=== PATIENT | male | born 1950 | race Caucasian/White ===

== ENCOUNTER 2018-01-10 07:18 | Outpatient (CLI) | payer MEDICARE, BC ==
[~2018-01-10] VITALS: Ht 177.8 cm; Wt 112.0 kg
[2018-01-10 07:50] LABS: TOTAL HEMOGLOBIN 13.5 G/dl (14.0-18.0)
[2018-01-10] MEDS ORDERED: albuterol 2.5 MG/3 ML nebule NEB PRN (08:15)
== END 2018-01-10 23:59 | disposition home or self-care (01) ==
LOC: RT 07:18
PROVIDERS: ATTEND Internal Medicine Pulmonary Disease
DX: R05 Cough (principal)
CPT/HCPCS: 85018; 94010; 94727; 94729; J7030; A4620

== ENCOUNTER 2018-06-06 05:24 | Inpatient (IN) | payer MEDICARE, BC ==
[2018-06-01 13:45] LABS: EOSINOPHILS # (AUTO) 0.1 X10'3 (0-0.9); EOSINOPHILS % (AUTO) 2.2 % (0-6); LYMPHOCYTES # (AUTO) 1.2 X10'3 (1.1-4.8); LYMPHOCYTES % (AUTO) 23.8 % (21-51); MEAN CORPUSCULAR HEMOGLOBIN 27.5 PG (27.0-31.0); MEAN CORPUSCULAR HGB CONC 33.3 % (33.0-36.5); MEAN CORPUSCULAR VOLUME 82.6 FL (78-98); MONOCYTES # (AUTO) 0.4 X10'3 (0-0.9); MONOCYTES % (AUTO) 8.7 % (2-12); NEUTROPHILS # (AUTO) 3.2 X10'3 (1.8-7.7); NEUTROPHILS % (AUTO) 64.3 % (42-75); PRE OP HEMATOCRIT 44.1 % (42.0-52.0); PRE OP HEMOGLOBIN 14.7 g/dL (14.0-17.9); PRE OP PLATELET COUNT 249 X10'3 (140-440); RED BLOOD COUNT 5.34 X10'6 (4.70-6.10); RED CELL DISTRIBUTION WIDTH 15.9 % (11.5-14.5)
[2018-06-01 13:54] LABS: CLARITY,URINE CLEAR (Clear); COLOR,URINE YELLOW (Yellow); GLUCOSE, URINE NEGATIVE (Neg); KETONES,URINE NEGATIVE (Neg); LEUKOCYTE ESTERASE ,URINE NEGATIVE (Neg); NITRITES, URINE NEGATIVE (Neg); OCCULT BLOOD,URINE NEGATIVE (Neg); PH,URINE 5.5 (4.8-8.0); PROTEIN,URINE NEGATIVE (Neg); UROBILINOGEN,URINE 0.2 E.U/dL (0.2-1.0)
[2018-06-01 14:00] LABS: UA COLLECTION TYPE CLN CATCH MIDSTREAM
[2018-06-01 14:06] LABS: ALBUMIN 3.6 G/DL (3.4-5.0); ALBUMIN/GLOBULIN RATIO 0.9 (1.1-1.5); ALKALINE PHOSPHATASE 146 IU/L (46-116); BLOOD UREA NITROGEN 18 MG/DL (7-18); BUN/CREATININE RATIO 15.5 (5.4-32.0); CALCIUM 8.8 MG/DL (8.5-10.1); CHLORIDE 101 MMOL/L (99-107); CREATININE 1.16 MG/DL (0.60-1.10); PRE OP ALT 27 U/L (30-65); PRE OP ANION GAP 13 (8-16); PRE OP AST 19 U/L (10-37); PRE OP BILIRUB, TOTAL 0.5 MG/DL (0.0-1.0); PRE OP GLUCOSE 174 MG/DL (70-104); PRE OP SODIUM 138 MMOL/L (135-145); TOTAL PROTEIN 7.4 G/DL (6.4-8.2); eGFR 63 ML/MIN
[2018-06-01 14:11] LABS: PRE OP POTASSIUM 3.2 MMOL/L (3.4-5.1)
[2018-06-01 14:18] LABS: PRE OP INR 1.1 INR; PRE OP PROTIME 10.8 SECONDS (9.0-12.0)
[2018-06-01 14:24] LABS: HEMOGLOBIN A1C 6.5 % (4.5-6.2)
[~2018-06-06] VITALS: Ht 177.8 cm; Wt 104.1 kg
[2018-06-06] VITALS (25 sets, daily range): BP systolic 90–230; BP diastolic 48–100
[~2018-06-06 05:24] MED LIST: CARV6.253 PO; CHOL400T14 PO; GEMF600T89 PO; GLIM4TAB79 PO; HYDR25TA4 PO; LOSA100T57 PO; METF1000 PO; MULT1TAB74 PO; NIA500ERT PO; OMEP20CA10 PO; PIOG15TA8 PO; RANI150T8 PO; ringers solution, lacted 1,000 ML IV SCH
[2018-06-06] MEDS ORDERED: cefazolin/dext.iso 2gm/100 ML IV ONE (05:30)
[2018-06-06] MEDS ORDERED: famotidine 20mg tablet PO ONE (05:30)
[2018-06-06] MEDS ORDERED: DOCUMENT DATE & TIME OF BETA-BLOCKER PO ONE (05:30)
[2018-06-06 06:26] LABS: ISTAT HGB 14.3 g/dl (14.0-18.0); ISTAT IONIZED CALCIUM 1.17 mmol/L (1.03-1.32); ISTAT K 3.4 mmol/L (3.5-5.1)
[2018-06-06] MEDS ORDERED: ROPIVAcaine 0.5% (5mg/ml) 30ml vial ONE ×3 (06:30→09:34)
[2018-06-06] MEDS ORDERED: insulin regular, human 10 units/0.1 ml syringe SQ ONE (07:05)
[2018-06-06] MEDS ORDERED: MIDAZolam 5mg/5ml vial ONE (07:24)
[2018-06-06] MEDS ORDERED: fentaNYL /PF 50mcg/ml 5ml ampule ONE (07:24)
[2018-06-06] MEDS ORDERED: rocuronium 10mg/ml inj IV ONE (07:24)
[2018-06-06] MEDS ORDERED: etomidate 2mg/ml inj. ONE (07:24)
--- NOTE | 2018-06-06 08:00 | NUR ---
DR NESBITT CALLED WITH FOLLOW UP BLOOD GLUCOSE (PER HIS REQUEST TO DO AT 0800). NO NEW ORDERS.
[2018-06-06] MEDS ORDERED: furosemide 40mg/4ml inj ONE (08:22)
[2018-06-06] MEDS ORDERED: sevoflurane 250ml liquid IH ONE (08:22)
[2018-06-06] MEDS ORDERED: pancuronium br 1mg/ml inj IV ONE (09:25)
[2018-06-06] MEDS ORDERED: dexamethasone sod phosphate 4mg/ml inj. ONE (09:25)
[2018-06-06] MEDS ORDERED: ondansetron/PF 4mg/2ml inj ONE (09:25)
[2018-06-06] MEDS ORDERED: ringers solution, lacted 1,000 ML IV SCH (09:54)
[2018-06-06] MEDS ORDERED: ondansetron/PF 4mg/2ml inj IV PRN ×2 (09:55→10:20)
[2018-06-06] MEDS ORDERED: meperidine/PF 25mg/ml syringe IV PRN ×3 (09:55)
[2018-06-06] MEDS ORDERED: morphine 4 MG/ML inj SYRINge IV PRN ×4 (09:55→10:20)
[2018-06-06] MEDS ORDERED: proCHLORperazine 10 MG/2 ml inj IV PRN (09:55)
[2018-06-06] MEDS ORDERED: ePHEDrine 50MG/ML INJ. ONE (10:07)
[2018-06-06] MEDS ORDERED: glycopyrrolate 0.2mg/ml inj ONE (10:07)
[2018-06-06] MEDS ORDERED: neostigmine methylsulfate 1 MG/ML 10ml vial ONE (10:07)
[2018-06-06] MEDS ORDERED: famotidine 20mg tablet PO PRN (10:10)
[2018-06-06] MEDS ORDERED: magnesium hydroxide 30ml (MOM) UD suspension PO PRN (10:20)
[2018-06-06] MEDS ORDERED: sugammadex 200mg/2ml injection IV ONE (10:20)
[2018-06-06] MEDS ORDERED: HYDROcodone/acetaminophen 10/325mg tab PO PRN ×2 (10:20)
[2018-06-06] MEDS ORDERED: albuterol 2.5 MG/3 ML nebule NEB PRN ×2 (10:20)
[2018-06-06] MEDS ORDERED: metoclopramide 5 mg/ml inj IV PRN (10:20)
--- NOTE | 2018-06-06 10:20 | NUR ---
Received critical WBC 32.0. Critical lab given to Gwendolyn PRICE Addendum: 06/06/18 at 1433 by Evon Cha RN Documented on wrong patient. Please disregard this note. Thank you
[2018-06-06] MEDS ORDERED: potassium Cl 20 mEq SR tablet PO PRN (10:30)
[2018-06-06] MEDS ORDERED: magnesium Cl slow-release 64mg tablet PO PRN (10:30)
[2018-06-06] MEDS ORDERED: potassium Cl 40MEQ/NS 500ml 500 ML IV PRN ×2 (10:30)
[2018-06-06] MEDS ORDERED: magnesium 4gm in 100ml NS 100 ML IV PRN (10:30)
--- NOTE | 2018-06-06 10:45 | NUR ---
ARRIVED IN PACU VIA BED FROM OR WITH DR NESBITT IN ATTENDANCE. O2 ON. DR NESBITT IN ATTENDANCE. REPORT RECEIVED. PT. VERY RESTLESS AND COUGHING AND APPEARS TO BE AIR STARVED. SAO2 85%. bp 22osyst. BREATHING RX AND XRAY ORDERED.
--- NOTE | 2018-06-06 10:50 | NUR ---
BREATHING IS SHALLOW AND BREATH SOUNDS VERY DIMINISHED. COUGH WEAK. PT STRONG GRIPPING SIDE RAILS AND SITTING UP
--- NOTE | 2018-06-06 11:00 | NUR ---
LASIX 20MG GIVENN BY DR NESBITT ( 1ST DOSE WAS GIVEN IN OR).
[2018-06-06 11:06] LABS: ABG BASE EXCESS -6.1 mmol/L (-2.0-3.0); ABG HCO3 23.5 mmol/L (22.0-26.0); ABG OXYGEN SATURATION 87.5 % (95-98); ABG PCO2 (T) 63.6 mmHg (35.0-48.0); ABG PH (T) 7.186 (7.350-7.450); ABG PO2 (T) 65.2 mmHg (83-108); FCOHb 0.8 % (0.5-1.5); FLOW 8 L/min; FMetHb 0.1 % (0.3-1.12); FO2Hb 86.7 % (94-100); RESPIRATORY RATE (OBSERVED) 40 b/min; TOTAL HEMOGLOBIN 16.4 G/dl (14.0-18.0)
--- NOTE | 2018-06-06 11:10 | NUR ---
BIPAP APPLIED AFTER ABG RESULTS REVIEWED BY DR NESBITT. REG INSULIN 8U IV GIVEN. CT WITH 70ML IN HEMOVAC
--- NOTE | 2018-06-06 11:10 | NUR ---
SAO2 88%. BP 186/85-95-28
[2018-06-06] MEDS ORDERED: insulin regular, human 10 units/0.1 ml syringe ONE ×2 (11:16→11:18)
--- NOTE | 2018-06-06 12:00 | NUR ---
PT LESS RESTLESS. VS STABILIZING. LG AMT URINE IN SWARTZ
--- NOTE | 2018-06-06 12:37 | NUR ---
PT COMFORTABLE. RESP EASY. COLOR PINK. NO C/O PAIN. BIPAP D/C'D AND 10L MASK ADDED
[2018-06-06 12:40] LABS: BASOPHILS % (AUTO) 0.2 % (0-1); EOSINOPHILS % (AUTO) 0 % (0-6); HEMATOCRIT 47.4 % (42.0-52.0); HEMOGLOBIN 15.9 g/dl (14.0-17.9); LYMPHOCYTES # (AUTO) 0.7 X10'3 (1.1-4.8); LYMPHOCYTES % (AUTO) 4.5 % (21-51); MEAN CORPUSCULAR HEMOGLOBIN 27.3 PG (27.0-31.0); MEAN CORPUSCULAR HGB CONC 33.5 % (33.0-36.5); MEAN CORPUSCULAR VOLUME 81.4 FL (78-98); MEAN PLATELET VOLUME 10.2 FL (7.4-10.4); MONOCYTES # (AUTO) 0.3 X10'3 (0-0.9); NEUTROPHILS # (AUTO) 14.3 X10'3 (1.8-7.7); NEUTROPHILS % (AUTO) 93.3 % (42-75); PLATELET COUNT 286 X10'3 (140-440); RED BLOOD COUNT 5.82 X10'6 (4.70-6.10); RED CELL DISTRIBUTION WIDTH 15.8 % (11.5-14.5); WHITE BLOOD COUNT 15.3 X10'3 (4.5-11.0)
--- NOTE | 2018-06-06 12:45 | NUR ---
SAO2 93%. INCREASED COUGH OF BYPASS. HOB ELEVATED 80%
[2018-06-06 12:47] LABS: ALBUMIN 3.5 G/DL (3.4-5.0); ANION GAP 14 (8-16); BLOOD UREA NITROGEN 14 MG/DL (7-18); BUN/CREATININE RATIO 12.5 (5.4-32.0); CALCIUM 8.1 MG/DL (8.5-10.1); CHLORIDE 101 MMOL/L (99-107); CREATININE 1.12 MG/DL (0.60-1.10); GLUCOSE 167 MG/DL (70-104); MAGNESIUM 1.5 MG/DL (1.5-2.4); POTASSIUM 3.3 MMOL/L (3.5-5.1); SODIUM 137 MMOL/L (135-145); TOTAL CARBON DIOXIDE 21.7 MMOL/L (24-32); eGFR 66 ML/MIN
--- NOTE | 2018-06-06 13:05 | NUR ---
REPORT TO DR NESBITT. NO REPEAT ABG NEEDED. PCU OK WITH TELE. REPEAT BREATING RX GIVEN. GLUCOSE OK AT 167.
[2018-06-06] MEDS ORDERED: albuterol 2.5 MG/3 ML nebule NEB ONE (13:10)
--- NOTE | 2018-06-06 13:20 | NUR ---
100ML URINE EMPTIED. CT 85ML
--- NOTE | 2018-06-06 14:10 | NUR ---
PHONE REPORT TO DR ORDAZ
--- NOTE | 2018-06-06 14:10 | NUR ---
DR NESBITT HERE TO EXAM PT. HE GAVE PT A REPORT ON THE SURG
--- NOTE | 2018-06-06 14:45 | NUR ---
PT DOESN'T WANT TO WEAR MASK. SAO2 90-93% ON NC. BP 110SYST BY COUGH. TO ACCE UNIT [id number]. PT AWAKE, COMFORTABLE, RESP EASY, COLOR PINK. PAT IN ROOM TO ACCEOT PT. SAO2 90-91 ON ARRIVAL. INSTRUCTED NURSE TO START PT ON IS KAREN
--- NOTE | 2018-06-06 15:12 | NUR ---
RECEIVED PATIENT AND REPORT FROM RECOVERY. PATIENT AWAKE AND ALERT. O2 SAT 92% ON 6L/NC. DENIES PAIN, SOB ,AND OR NAUSEA. HOB UP, CALL LIGHT IN REACH.CHEST TUBE TO SUCTION, AT RT LATERAL CHEST, CDI. NO AIR LEAK NOTED; SUCTION AT 20 CM. Addendum: 06/06/18 at 1525 by Yeimi Parham RN Amended: Links added.
[2018-06-06] MEDS: ketorolac tromethamine 15mg/ml inj. IV SCH ×2 (16:00→20:47)
--- NOTE | 2018-06-06 16:00 | NUR ---
MEDICATED WITH TORADOL FOR C/O CHEST TUBE PAIN.O2 SAT IMPROVED , NOW 97% ON 6L/NC. HOB UP CALL LIGHT IN REACH. Addendum: 06/06/18 at 1857 by Yeimi Parham RN Amended: Links added.
[2018-06-06] MEDS: ceFAZolin inj. 1,000 MG in dextrose 5%-water 50ml 50 ML IV SCH (17:00)
--- NOTE | 2018-06-06 18:15 | NUR ---
Patient in room MED 315. I have received report from Pat and had the opportunity to ask questions and assume patient care.
[2018-06-06] MEDS: docusate sod 100mg capsule PO SCH (20:00)
[2018-06-06] MEDS: gemfibrozil 600mg tablet PO SCH (20:00)
[2018-06-06] MEDS ORDERED: non-formulary drug (Omeprazole 1 CAP) PO SCH (20:00)
[2018-06-06] MEDS ORDERED: metFORMIN 500mg tablet PO SCH (20:00)
[2018-06-06] MEDS: carvedilol 6.25mg tablet PO SCH (20:48)
[2018-06-07] MEDS: ceFAZolin inj. 1,000 MG in dextrose 5%-water 50ml 50 ML IV SCH (00:09)
[2018-06-07] MEDS: ketorolac tromethamine 15mg/ml inj. IV SCH ×2 (02:03→08:17)
[2018-06-07 03:00] VITALS: BP 91/53
[2018-06-07 05:11] LABS: BASOPHILS % (AUTO) 0.1 % (0-1); EOSINOPHILS # (AUTO) 0.1 X10'3 (0-0.9); EOSINOPHILS % (AUTO) 1.4 % (0-6); HEMATOCRIT 39.3 % (42.0-52.0); LYMPHOCYTES # (AUTO) 0.6 X10'3 (1.1-4.8); LYMPHOCYTES % (AUTO) 6.3 % (21-51); MEAN CORPUSCULAR HEMOGLOBIN 27.3 PG (27.0-31.0); MEAN CORPUSCULAR HGB CONC 33.1 % (33.0-36.5); MEAN CORPUSCULAR VOLUME 82.4 FL (78-98); MEAN PLATELET VOLUME 10.1 FL (7.4-10.4); MONOCYTES # (AUTO) 0.6 X10'3 (0-0.9); MONOCYTES % (AUTO) 6.3 % (2-12); NEUTROPHILS % (AUTO) 85.9 % (42-75); PLATELET COUNT 197 X10'3 (140-440); RED BLOOD COUNT 4.76 X10'6 (4.70-6.10); RED CELL DISTRIBUTION WIDTH 15.7 % (11.5-14.5); WHITE BLOOD COUNT 9.4 X10'3 (4.5-11.0)
[2018-06-07 05:26] LABS: ANION GAP 15 (8-16); BLOOD UREA NITROGEN 20 MG/DL (7-18); BUN/CREATININE RATIO 16.5 (5.4-32.0); CALCIUM 8.6 MG/DL (8.5-10.1); CHLORIDE 101 MMOL/L (99-107); CREATININE 1.21 MG/DL (0.60-1.10); GLUCOSE 163 MG/DL (70-104); MAGNESIUM 1.6 MG/DL (1.5-2.4); POTASSIUM 3.6 MMOL/L (3.5-5.1); SODIUM 138 MMOL/L (135-145); eGFR 60 ML/MIN
[2018-06-07 07:00] VITALS: BP 147/73
--- NOTE | 2018-06-07 07:00 | NUR ---
SMALL AIR LEAK NOTED WITH DR. ORDAZ AND DARCY SANTOYO AT BEDSIDE. NO NEW ORDERS, PATIENT ASYMPTOMATIC. WILL CONTINUE TO MONITOR.
--- NOTE | 2018-06-07 07:00 | NUR ---
DR. ORDAZ AND KAREN TAVERAS AT BEDSIDE. VERY TINY AIR LEAK NOTED FROM CHEST TUBE DURING PATIENT INSPIRATION. WILL CONTINUE TO MONITOR
--- NOTE | 2018-06-07 07:17 | NUR ---
paged radiology for chest x-ray "PT IN 315 NEEDS A CHEST XRAY NOW, PER DR. ORDAZ, THANK YOU. JACEK SALCIDO [phone]"
[2018-06-07] MEDS: docusate sod 100mg capsule PO SCH ×2 (08:00→20:00)
[2018-06-07] MEDS: K and/or MAG REPLACEMENT MC SCH (08:00)
[2018-06-07] MEDS: cholecalciferol (vitamin D) 400 unit tablet PO SCH (08:16)
[2018-06-07] MEDS: pantoprazole 40mg Tablet.DR PO SCH (08:16)
[2018-06-07] MEDS: multivitamins, therapeutics tablet PO SCH (08:16)
[2018-06-07] MEDS: HYDROchlorothiazide 25mg tablet PO SCH (08:16)
[2018-06-07] MEDS: carvedilol 6.25mg tablet PO SCH ×2 (08:16→20:00)
[2018-06-07] MEDS: losartan 50mg tablet PO SCH (08:16)
[2018-06-07] MEDS: pioglitazone 15mg tablet PO SCH (08:58)
[2018-06-07] MEDS: gemfibrozil 600mg tablet PO SCH ×2 (08:58→20:00)
[2018-06-07 11:00] VITALS: BP 116/51
--- NOTE | 2018-06-07 11:15 | NUR ---
PHYSICAL THERAPY AT BEDSIDE TO WORK WITH PATIENT
--- NOTE | 2018-06-07 11:42 | NUR ---
PATIENT TOLERATED PHYSICAL THERAPY WITHOUT COMPLAINTS. WALKED 500 FT AROUND NURSING STATION W/ O2.
[2018-06-07 15:00] VITALS: BP 129/73
[2018-06-07] MEDS: acetaminophen w/codeine (30MG) #3 tablet PO PRN ×2 (15:40→21:00)
--- NOTE | 2018-06-07 15:50 | NUR ---
SWARTZ REMOVED PER MD ORDER. PATIENT TOLERATED WELL, BALLOON INTACT. INSTRUCTED PATIENT TO INFORM NURSING OF NORMAL VOIDING. PATIENT VERBALIZED UNDERSTANDING. WILL CONTINUE TO MONITOR
--- NOTE | 2018-06-07 16:22 | NUR ---
minimal amount of serosanguinous dressing noted on chest tube site. will continue to monitor. charge nurse Shreya made aware. patient denies any new symptoms or complaints.
[2018-06-07] MEDS: metFORMIN 500mg tablet PO SCH (17:35)
[2018-06-07 19:00] VITALS: BP 142/74
[2018-06-07 23:00] VITALS: BP 126/60
[2018-06-08 02:00] VITALS: BP 108/55
[2018-06-08] MEDS: acetaminophen w/codeine (30MG) #3 tablet PO PRN ×3 (04:09→13:49)
[2018-06-08 04:55] LABS: BASOPHILS % (AUTO) 0.2 % (0-1); EOSINOPHILS # (AUTO) 0.1 X10'3 (0-0.9); EOSINOPHILS % (AUTO) 1.4 % (0-6); HEMATOCRIT 38.2 % (42.0-52.0); HEMOGLOBIN 12.8 g/dl (14.0-17.9); LYMPHOCYTES # (AUTO) 0.9 X10'3 (1.1-4.8); LYMPHOCYTES % (AUTO) 14.5 % (21-51); MEAN CORPUSCULAR HEMOGLOBIN 27.3 PG (27.0-31.0); MEAN CORPUSCULAR HGB CONC 33.5 % (33.0-36.5); MEAN CORPUSCULAR VOLUME 81.6 FL (78-98); MONOCYTES # (AUTO) 0.7 X10'3 (0-0.9); MONOCYTES % (AUTO) 10.6 % (2-12); NEUTROPHILS # (AUTO) 4.6 X10'3 (1.8-7.7); NEUTROPHILS % (AUTO) 73.3 % (42-75); PLATELET COUNT 178 X10'3 (140-440); RED BLOOD COUNT 4.69 X10'6 (4.70-6.10); RED CELL DISTRIBUTION WIDTH 16.1 % (11.5-14.5); WHITE BLOOD COUNT 6.3 X10'3 (4.5-11.0)
[2018-06-08 05:17] LABS: ANION GAP 11 (8-16); BLOOD UREA NITROGEN 16 MG/DL (7-18); BUN/CREATININE RATIO 16.3 (5.4-32.0); CALCIUM 8.6 MG/DL (8.5-10.1); CHLORIDE 101 MMOL/L (99-107); CREATININE 0.98 MG/DL (0.60-1.10); GLUCOSE 75 MG/DL (70-104); MAGNESIUM 1.6 MG/DL (1.5-2.4); POTASSIUM 3.3 MMOL/L (3.5-5.1); SODIUM 138 MMOL/L (135-145); TOTAL CARBON DIOXIDE 26.3 MMOL/L (24-32); eGFR 77 ML/MIN
[2018-06-08 06:00] VITALS: BP 119/60
--- NOTE | 2018-06-08 06:00 | NUR ---
Patient in room MED 315. I have received report from ALBERT Soto and had the opportunity to ask questions and assume patient care.
--- NOTE | 2018-06-08 07:00 | NUR ---
Blood glucose check was critical low of 68. Patient was asymptomatic. He refused glucose shot and ate muffin. Will repeat Blood glucose check.
[2018-06-08] MEDS: pantoprazole 40mg Tablet.DR PO SCH ×2 (07:30→08:08)
[2018-06-08] MEDS: metFORMIN 500mg tablet PO SCH ×2 (08:08→16:40)
[2018-06-08] MEDS: docusate sod 100mg capsule PO SCH ×2 (08:10→19:44)
[2018-06-08] MEDS: potassium Cl 20 mEq SR tablet PO PRN ×3 (08:10→16:40)
[2018-06-08] MEDS: losartan 50mg tablet PO SCH (08:11)
[2018-06-08] MEDS: carvedilol 6.25mg tablet PO SCH ×2 (08:11→19:43)
[2018-06-08] MEDS: multivitamins, therapeutics tablet PO SCH (08:11)
[2018-06-08] MEDS: HYDROchlorothiazide 25mg tablet PO SCH (08:12)
[2018-06-08] MEDS: K and/or MAG REPLACEMENT MC SCH (08:17)
[2018-06-08] MEDS: pioglitazone 15mg tablet PO SCH (08:49)
[2018-06-08] MEDS: cholecalciferol (vitamin D) 400 unit tablet PO SCH (08:50)
[2018-06-08] MEDS: gemfibrozil 600mg tablet PO SCH ×2 (08:50→19:44)
--- NOTE | 2018-06-08 10:00 | NUR ---
Titrated O2 setting to 4L.
--- NOTE | 2018-06-08 11:00 | NUR ---
Titrated O2 level to 4L, patient tolerating well and maintaining O2 level >93%.
--- NOTE | 2018-06-08 11:00 | NUR ---
Titrated O2 level down to 3L. Patient was tolerating the 4L and maintaining O2 level >93%.
[2018-06-08 11:30] VITALS: BP 151/77
--- NOTE | 2018-06-08 12:32 | NUR ---
O2 titrated down to 2L, patient SAO2 is at 96%. Will continue to monitor and titrate off SAO2.
--- NOTE | 2018-06-08 13:51 | NUR ---
Titrated O2 to 1.5L, pt SAO2 at 94% and respirations between 16-20 BPM. Will continue to monitor.
[2018-06-08 15:00] VITALS: BP 133/60
--- NOTE | 2018-06-08 15:15 | NUR ---
After walking patient, I left the NC off because patient SAO2 was >93%. I observed patient for about 15 minutes with pulse ox monitor. Patient tolerated well and will continue to monitor patient.
--- NOTE | 2018-06-08 16:30 | NUR ---
Placed patient back on NC due to low SaO2 below 90%. Patient refused at first but then I was able to convince the patient that it would be in his best interest to continue on the O2. O2 at 2L. Will continue to monitor patient.
--- NOTE | 2018-06-08 18:30 | NUR ---
Problems reprioritized. Patient report given, questions answered & plan of care reviewed with ALBERT Roberts.
[2018-06-08 19:00] VITALS: BP 125/68
[2018-06-08 23:00] VITALS: BP 143/70
--- NOTE | 2018-06-09 01:05 | NUR ---
Oxygen saturation 90%, increased oxygen from 2.5 liters to 3.5 liters
[2018-06-09] MEDS: acetaminophen w/codeine (30MG) #3 tablet PO PRN ×2 (02:11→06:39)
[2018-06-09 06:00] VITALS: BP 132/77
--- NOTE | 2018-06-09 06:00 | NUR ---
Patient in room MED 315. I have received report from ALBERT Roberts and had the opportunity to ask questions and assume patient care.
--- NOTE | 2018-06-09 06:25 | NUR ---
Problems reprioritized. Patient report given, questions answered & plan of care reviewed with Cassie RN.
[2018-06-09] MEDS: metFORMIN 500mg tablet PO SCH ×2 (06:36→17:06)
[2018-06-09 06:54] LABS: BASOPHILS % (AUTO) 0.6 % (0-1); EOSINOPHILS # (AUTO) 0.1 X10'3 (0-0.9); HEMATOCRIT 42.4 % (42.0-52.0); LYMPHOCYTES # (AUTO) 1.1 X10'3 (1.1-4.8); LYMPHOCYTES % (AUTO) 15.6 % (21-51); MEAN CORPUSCULAR HEMOGLOBIN 27.4 PG (27.0-31.0); MEAN CORPUSCULAR HGB CONC 33.1 % (33.0-36.5); MEAN CORPUSCULAR VOLUME 82.8 FL (78-98); MEAN PLATELET VOLUME 10.4 FL (7.4-10.4); MONOCYTES # (AUTO) 0.8 X10'3 (0-0.9); MONOCYTES % (AUTO) 11.1 % (2-12); NEUTROPHILS # (AUTO) 4.8 X10'3 (1.8-7.7); NEUTROPHILS % (AUTO) 71.7 % (42-75); PLATELET COUNT 216 X10'3 (140-440); RED BLOOD COUNT 5.12 X10'6 (4.70-6.10); RED CELL DISTRIBUTION WIDTH 14.9 % (11.5-14.5); WHITE BLOOD COUNT 6.8 X10'3 (4.5-11.0)
[2018-06-09] MEDS: pantoprazole 40mg Tablet.DR PO SCH (07:35)
[2018-06-09] MEDS: pioglitazone 15mg tablet PO SCH (07:36)
[2018-06-09] MEDS: carvedilol 6.25mg tablet PO SCH ×2 (07:37→19:29)
[2018-06-09] MEDS: losartan 50mg tablet PO SCH (07:37)
[2018-06-09] MEDS: docusate sod 100mg capsule PO SCH ×2 (07:37→19:30)
[2018-06-09] MEDS: multivitamins, therapeutics tablet PO SCH (07:38)
[2018-06-09] MEDS: HYDROchlorothiazide 25mg tablet PO SCH (07:38)
[2018-06-09] MEDS: gemfibrozil 600mg tablet PO SCH ×2 (07:38→19:29)
[2018-06-09] MEDS: cholecalciferol (vitamin D) 400 unit tablet PO SCH (07:39)
[2018-06-09] MEDS: K and/or MAG REPLACEMENT MC SCH (08:00)
[2018-06-09 11:00] VITALS: BP 106/62
--- NOTE | 2018-06-09 12:00 | NUR ---
Patient refused glucometer check at this time, as his bmp was just drawn. BMP blood glucose 142.
[2018-06-09 12:22] LABS: ALBUMIN 3.5 G/DL (3.4-5.0); ANION GAP 10 (8-16); BLOOD UREA NITROGEN 19 MG/DL (7-18); BUN/CREATININE RATIO 16.2 (5.4-32.0); CALCIUM 9.6 MG/DL (8.5-10.1); CHLORIDE 96 MMOL/L (99-107); CREATININE 1.17 MG/DL (0.60-1.10); GLUCOSE 142 MG/DL (70-104); POTASSIUM 3.9 MMOL/L (3.5-5.1); SODIUM 135 MMOL/L (135-145); TOTAL CARBON DIOXIDE 28.7 MMOL/L (24-32); eGFR 62 ML/MIN
[2018-06-09 15:00] VITALS: BP 112/69
--- NOTE | 2018-06-09 17:07 | NUR ---
Patient refused accucheck at 1700, last blood glucose was 142. Patient blood sugar has remained stable on Metformin and Glipizide. He will also be discharge home on 06/10/2018.
--- NOTE | 2018-06-09 18:28 | NUR ---
[place] documentation: I have reviewed and agree with all interventions, assessments performed and documented by Atiya PRICE. [facility] Medication Administration: For this medication-pass time frame, all medication were reviewed, dispensed, administered and documented per hospital policy by Atiya PRICE.
--- NOTE | 2018-06-09 18:30 | NUR ---
Problems reprioritized. Patient report given, questions answered & plan of care reviewed with Armando PRICE.
[2018-06-09 19:00] VITALS: BP 96/64
[2018-06-09 23:00] VITALS: BP 117/72
[2018-06-10 03:00] VITALS: BP 98/46
[2018-06-10 06:00] VITALS: BP 139/72
--- NOTE | 2018-06-10 06:39 | NUR ---
Problems reprioritized. Patient report given, questions answered & plan of care reviewed with Anne RN.
[2018-06-10 06:57] LABS: ANION GAP 13 (8-16); BLOOD UREA NITROGEN 23 MG/DL (7-18); BUN/CREATININE RATIO 20.4 (5.4-32.0); CALCIUM 8.8 MG/DL (8.5-10.1); CHLORIDE 96 MMOL/L (99-107); CREATININE 1.13 MG/DL (0.60-1.10); GLUCOSE 143 MG/DL (70-104); MAGNESIUM 1.6 MG/DL (1.5-2.4); POTASSIUM 3.5 MMOL/L (3.5-5.1); SODIUM 135 MMOL/L (135-145); TOTAL CARBON DIOXIDE 26.1 MMOL/L (24-32); eGFR 65 ML/MIN
[2018-06-10 07:02] LABS: BASOPHILS % (AUTO) 0.3 % (0-1); EOSINOPHILS # (AUTO) 0.1 X10'3 (0-0.9); EOSINOPHILS % (AUTO) 1.7 % (0-6); HEMATOCRIT 37.3 % (42.0-52.0); HEMOGLOBIN 12.7 g/dl (14.0-17.9); LYMPHOCYTES # (AUTO) 0.7 X10'3 (1.1-4.8); LYMPHOCYTES % (AUTO) 13.7 % (21-51); MEAN CORPUSCULAR HEMOGLOBIN 27.9 PG (27.0-31.0); MEAN CORPUSCULAR VOLUME 82.2 FL (78-98); MEAN PLATELET VOLUME 10.1 FL (7.4-10.4); MONOCYTES # (AUTO) 0.6 X10'3 (0-0.9); MONOCYTES % (AUTO) 11.3 % (2-12); NEUTROPHILS # (AUTO) 3.5 X10'3 (1.8-7.7); PLATELET COUNT 169 X10'3 (140-440); RED BLOOD COUNT 4.54 X10'6 (4.70-6.10); RED CELL DISTRIBUTION WIDTH 14.5 % (11.5-14.5); WHITE BLOOD COUNT 4.9 X10'3 (4.5-11.0)
[2018-06-10] MEDS: docusate sod 100mg capsule PO SCH (08:00)
[2018-06-10] MEDS: cholecalciferol (vitamin D) 400 unit tablet PO SCH (08:10)
[2018-06-10] MEDS: HYDROchlorothiazide 25mg tablet PO SCH (08:10)
[2018-06-10] MEDS: gemfibrozil 600mg tablet PO SCH (08:10)
[2018-06-10] MEDS: carvedilol 6.25mg tablet PO SCH (08:10)
[2018-06-10] MEDS: pantoprazole 40mg Tablet.DR PO SCH (08:10)
[2018-06-10] MEDS: multivitamins, therapeutics tablet PO SCH (08:10)
[2018-06-10] MEDS: pioglitazone 15mg tablet PO SCH (08:11)
[2018-06-10] MEDS: losartan 50mg tablet PO SCH (08:11)
[2018-06-10] MEDS: metFORMIN 500mg tablet PO SCH (08:23)
[2018-06-10] MEDS ORDERED: ACET-1 PO (09:22)
--- NOTE | 2018-06-10 11:00 | NUR ---
DARCY JONES INTO SEE PATIENT AND REMOVED DRESSING AT CHEST TUBE SITE. CHEST TUBE SITE CDI WITH SUTURE INTACT. PATIENT TO FOLLOW UP WITH DR. ORDAZ TO HAVE SUTURE REMOVED. DC'D SL WITH CATH INTACT; 2X2 PRESSURE DRESSING APPLIED. DC'D HOME WITH ALL BELONGINGS AND DISCHARGE INSTRUCTION. Addendum: 06/10/18 at 1657 by Yeimi Parham RN Amended: Links added.
== END 2018-06-10 11:30 | disposition home or self-care (01) | DRG 167 ==
LOC: PAS IN 05:24 → EDSTATUS 08:30 → ICU 2S 11:55 → MED 3N 14:49
PROVIDERS: ADMIT Thoracic Surgery (Cardiothoracic Vascular Surgery); ATTEND Thoracic Surgery (Cardiothoracic Vascular Surgery)
PROC: 0BBD4ZX Excision of Right Middle Lung Lobe, Percutaneous Endoscopic Approach, Diagnostic (ICD-10-PCS; 2018-06-06)
PROC: 0BBF4ZX Excision of Right Lower Lung Lobe, Percutaneous Endoscopic Approach, Diagnostic (ICD-10-PCS; 2018-06-06)
PROC: 5A09357 Assistance with Respiratory Ventilation, Less than 24 Consecutive Hours, Continuous Positive Airway Pressure (ICD-10-PCS; 2018-06-06)
PROC: 0B9F8ZX Drainage of Right Lower Lung Lobe, Via Natural or Artificial Opening Endoscopic, Diagnostic (ICD-10-PCS; 2018-06-06)
PROC: 05HM33Z Insertion of Infusion Device into Right Internal Jugular Vein, Percutaneous Approach (ICD-10-PCS; 2018-06-06)
PROC: B543ZZA Ultrasonography of Right Jugular Veins, Guidance (ICD-10-PCS; 2018-06-06)
PROC: 0BBC4ZX Excision of Right Upper Lung Lobe, Percutaneous Endoscopic Approach, Diagnostic (ICD-10-PCS; principal; 2018-06-06 08:22)
DX: R91.8 Other nonspecific abnormal finding of lung field (principal); R04.2 Hemoptysis; J93.82 Other air leak; E11.9 Type 2 diabetes mellitus without complications; E78.1 Pure hyperglyceridemia; E66.9 Obesity, unspecified; M19.90 Unspecified osteoarthritis, unspecified site; I10 Essential (primary) hypertension; K21.9 Gastro-esophageal reflux disease without esophagitis; Z88.8 Allergy status to other drugs, medicaments and biological substances; Z79.899 Other long term (current) drug therapy; Z79.84 Long term (current) use of oral hypoglycemic drugs; Z85.828 Personal history of other malignant neoplasm of skin; Z80.3 Family history of malignant neoplasm of breast; Z68.32 Body mass index [BMI] 32.0-32.9, adult; Y92.89 Other specified places as the place of occurrence of the external cause
CPT/HCPCS: 36415; 36600; 71045; 71046; 80047; 80048; 80053; 81003; 82803; 82948; 83036; 83735; 85018; 85025; 85610; 85730; 86885; 86900; 86901; 87070; 87075; 87102; 87176; 93005; 94640; 94660; 94760; 97116; 97161; 97530; A6257; A6258; A6449; A7000; A7048; C1758; C9399; G0378; J0690; J1100; J1815; J1885; J1940; J2250; J2270; J2405; J2710; J2795; J3010; J3480; J3490; J7060; J7120

== ENCOUNTER 2018-06-22 10:06 | Outpatient (CLI) | payer MEDICARE, BC ==
[~2018-06-22 10:06] MED LIST changes: +ACET-1 PO; -ringers solution, lacted 1,000 ML IV SCH
== END 2018-06-22 23:59 | disposition home or self-care (01) ==
LOC: RAD 10:06
PROVIDERS: ATTEND Thoracic Surgery (Cardiothoracic Vascular Surgery)
DX: M47.814 Spondylosis without myelopathy or radiculopathy, thoracic region (principal); E11.9 Type 2 diabetes mellitus without complications; I10 Essential (primary) hypertension; Z79.84 Long term (current) use of oral hypoglycemic drugs; Z88.8 Allergy status to other drugs, medicaments and biological substances; Z79.899 Other long term (current) drug therapy
CPT/HCPCS: 71046